=== PATIENT | female | born 1995 | race Caucasian/White ===

== ENCOUNTER 2020-02-07 18:12 | Emergency (ER) | payer OTHER ==
--- NOTE | 2020-02-07 19:19 | EKG REPORT ---
SEVERITY:- NORMAL ECG - SINUS RHYTHM : Confirmed by: Debra Rodney 07-Feb-2020 19:18:54
[2020-02-07 20:23] LABS: ABSOLUTE BASOPHILS # (AUTO) 0.1 10^3/uL (0.0-0.2); ABSOLUTE EOSINOPHILS # (AUTO) 0.2 10^3/uL (0.0-0.6); ABSOLUTE LYMPHOCYTES (AUTO) 1.9 10^3/uL (0.5-4.7); ABSOLUTE MONOCYTES (AUTO) 0.4 10^3/uL (0.1-1.4); ABSOLUTE NEUT (AUTO) 6.4 10^3/uL (1.7-8.2); BASOPHILS % (AUTO) 0.7 % (0-2); HEMATOCRIT 41.3 % (36.0-47.0); LYMPHOCYTES % (AUTO) 21.4 % (13-45); MEAN CORPUSCULAR HEMOGLOBIN 29.6 pg (27.0-33.4); MEAN CORPUSCULAR HGB CONC 33.9 g/dL (32.0-36.0); MEAN CORPUSCULAR VOLUME 88 fl (80-97); MONOCYTES % (AUTO) 4.7 % (3-13); PLATELET COUNT 278 10^3/uL (150-450); RED BLOOD COUNT 4.72 10^6/uL (3.72-5.28); RED CELL DISTRIBUTION WIDTH 12.5 % (11.5-14.0); SEGMENTED NEUTROPHILS % (AUTO) 71.2 % (42-78); TOTAL CELLS COUNTED % (AUTO) 100 %
[2020-02-07 20:39] LABS: ALBUMIN 4.6 g/dL (3.5-5.0); ALKALINE PHOSPHATASE 72 U/L (38-126); ANION GAP 7 (5-19); ASPARTATE AMINO TRANSFERASE 26 U/L (14-36); BILIRUBIN,TOTAL 0.4 mg/dL (0.2-1.3); BLOOD UREA NITROGEN 14 mg/dL (7-20); CALCIUM 9.4 mg/dL (8.4-10.2); CARBON DIOXIDE 26 mmol/L (22-30); CHLORIDE 104 mmol/L (98-107); CREATINE KINASE 140 U/L (30-135); GLUCOSE 98 mg/dL (75-110)
[2020-02-07] MEDS ORDERED: LIDOCAINE 2% VISCOUS SOLN 15 ML UDCUP PO ONE (20:42)
[2020-02-07] MEDS ORDERED: METOCLOPRAMIDE HCL ORAL SOLN 10 MG/10 ML UDCUP PO ONE (20:42)
[2020-02-07] MEDS ORDERED: MAG HYDROX/AL HYDROX/SIMETH SUSP 30 ML UDCUP PO ONE (20:42)
--- NOTE | 2020-02-07 20:44 | ER Document Report ---
ED General - General Chief Complaint: Chest Tightness Stated Complaint: Chest pain Time Seen by Provider: 02/07/20 20:26 Notes: Patient is a 25-year-old female that comes emergency department for chief complaint of chest pain. She states she has been feeling this for at least several days now but it became more noticeable today so she became concerned and came in for evaluation. She states that she has been drinking more wine recently, eating poorly, gaining weight, and she is concerned about her general health. She denies cough, shortness of breath, fever, nausea, vomiting, abdominal pain, flank pain. She denies specific pain at this time, she states she just feels "thirsty". She drank a minimal amount of wine today. She states she was borderline hypertensive in the past, had borderline cholesterol, however she has not been treated for any of these. She denies smoking, recreational drugs. She states her father of a heart attack (although not at an early age). She takes no daily medications. She denies . TRAVEL OUTSIDE OF THE [place] IN LAST 30 DAYS: Yes - Related Data Allergies/Adverse Reactions: No Known Allergies Allergy (Verified 07/30/14 20:14) Past Medical History - General Information source: Patient - Social History Smoking Status: Never Smoker Frequency of alcohol use: Heavy Drug Abuse: None Lives with: Family Family History: CAD - father had an LA, DM, Hyperlipidemia, Hypertension, Malignancy, Thyroid Disfunction Patient has homicidal ideation: No - Past Medical History Cardiac Medical History: Reports: Hx Hypercholesterolemia, Hx Hypertension Skin Medical History: Reports Hx MRSA Past Surgical History: Reports: Hx Tonsillectomy - Immunizations Hx Diphtheria, Pertussis, Tetanus Vaccination: Yes Review of Systems - Review of Systems Constitutional: See HPI EENT: No symptoms reported Cardiovascular: See HPI Respiratory: No symptoms reported Gastrointestinal: No symptoms reported Genitourinary: No symptoms reported Female Genitourinary: No symptoms reported Musculoskeletal: No symptoms reported Skin: No symptoms reported Hematologic/Lymphatic: No symptoms reported Neurological/Psychological: See HPI Physical Exam - Vital signs Vitals: Temp Pulse Resp BP Pulse Ox 98.3 F 74 18 146/83 H 100 02/07/20 18:28 02/07/20 18:28 02/07/20 18:28 02/07/20 18:28 02/07/20 18:28 - Notes Notes: GENERAL: Alert, interacts well. No acute distress. HEAD: Normocephalic, atraumatic. EYES: Pupils equal, round, and reactive to light. Extraocular movements intact. ENT: Oral mucosa moist, tongue midline. Oropharynx unremarkable. Airway patent. NECK: Full range of motion. Supple. Trachea midline. No lymphadenopathy. LUNGS: Clear to auscultation bilaterally, no wheezes, rales, or rhonchi. No respiratory distress. Non-tender chest wall. HEART: Regular rate and rhythm. No murmur ABDOMEN: Soft, non-tender. Non-distended. EXTREMITIES: Moves all 4 extremities spontaneously. No edema, normal radial and dorsalis pedis pulses bilaterally. No cyanosis. BACK: no cervical, thoracic, lumbar midline tenderness. No saddle anesthesia, normal distal neurovascular exam. Moves all extremities in full range of motion. NEUROLOGICAL: Alert and oriented x3. Normal speech. Cranial nerves II through XII grossly intact. Strength 5/5 in all extremities. PSYCH: Talks very rapidly but otherwise unremarkable SKIN: Warm, dry, normal turgor. No rashes or lesions noted. Course - Re-evaluation Re-evalutation: Patient with intermittent vague discomfort over the chest, nonspecific, no obvious exacerbating or alleviating factors. She is talkative and well-appearing. Vital signs unremarkable. After GI cocktail patient had complete resolution of symptoms. Patient's heart score is 1 based on family history only. Her work-up was negative including CBC, chemistry, troponin, test, chest x-ray, and her EKG is unremarkable. Patient has been drinking wine frequently over the past couple of weeks, my strongest suspicion based on her current lack of symptoms, atypical chest pain, negative work-up, and lack of risk factors is that this is most likely gastrointestinal. On reevaluation when patient symptoms had completely resolved with a GI cocktail I discussed results in detail, patient will be placed on Carafate, famotidine, I discussed restrictions, discussed primary care follow-up, discussed return precautions. Patient states understanding and agreement with plan. Stable, asymptomatic, well-appearing at time of discharge. - Vital Signs Vital signs: Temp Pulse Resp BP Pulse Ox 98.3 F 74 19 126/79 H 99 02/07/20 18:28 02/07/20 18:28 02/07/20 22:00 02/07/20 21:01 02/07/20 22:00 - Laboratory Result Diagrams: 02/07/20 20:03 02/07/20 20:03 Laboratory results interpreted by me: 02/07/20 20:03 Creatine Kinase 140 H - EKG Interpretation by Me Additional EKG results interpreted by me: EKG shows sinus rhythm at a rate of 75, QTC of 461, normal axis, no T wave inversions or ST segment changes in consecutive leads Discharge - Discharge Clinical Impression: Chest pain Qualifiers: Chest pain type: unspecified Qualified Code(s): R07.9 - Chest pain, unspecified Condition: Stable Disposition: HOME, SELF-CARE Additional Instructions: Your evaluation does not show any concerning findings tonight. Based on your symptoms, exam, and work-up, I suspect the pain is coming from inflammation of your upper gastrointestinal tract, especially your esophagus as we discussed. I recommend the Carafate and Pepcid as prescribed. Avoid alcohol, smoking, caffeine, NSAIDs, spicy food especially while you are recovering. Follow-up with primary care for additional evaluation and management, you may need additional tests if symptoms continue. Return if you worsen including vomiting, vomiting blood, severe worsening pain, black stools, or any other concerning or worsening symptoms. Prescriptions: Sucralfate [Carafate 1 gm Tablet] 1 gm PO QID #20 tablet Famotidine [Pepcid 20 mg Tablet] 20 mg PO BID #20 tablet Forms: Return to Work
[2020-02-07 21:01] LABS: TROPONIN I < 0.012 ng/mL
--- NOTE | 2020-02-07 21:39 | RADIOLOGY REPORT (SQ) ---
EXAM DESCRIPTION: X-ray, single view of the chest CLINICAL HISTORY: 25 years Female, chest pain COMPARISON: Two views of the chest 03/22/2015 FINDINGS: Lungs: Lungs are clear. No pneumonia or edema. No pneumothorax or pleural effusion. Mediastinum: Cardiac and mediastinal silhouette are normal. Bones: Osseous structures are normal. IMPRESSION: No acute process. No significant interval change.
[2020-02-07 22:33] VITALS: BP 145/97
== END 2020-02-07 22:33 | disposition home or self-care (01) ==
LOC: ER 18:12
DX: R07.9 Chest pain, unspecified (principal); I10 Essential (primary) hypertension
CPT/HCPCS: 93005; 99284; 36415; 82553; 82550; 84703; 85025; 80053; 84484; 71045; 93010; J3490